=== PATIENT | male | born 1960 | race Caucasian/White ===

== ENCOUNTER 2016-06-02 03:21 | Inpatient (IN) | payer OTHER ==
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
--- NOTE | ~2016-06-02 | PN ---
Unit #: [id number] #: [id number] Patient: SERGEY REDMAN [id number] [facility] [address] [place] [address] [id number] MR#: [id number] NAME: SERGEY REDMAN ROOM: P256 Age: 55 Sex: M Admission Date: 06/02/2016 : 1960 Attending Physician: Brigitte Rizo M.D. Admitting Physician: Brigitte Rizo M.D. Primary Care Physician: Primary Care Physician Felecia VARELA NOTES DATE 06/06/2016 DISCUSSION Mr. Redman is a 55-year-old, white male who was seen today and chart was reviewed and case was discussed with the staff. He has been anxious, withdrawn, depressed and rather seclusive to himself and has been exhibiting depressive symptoms. Meanwhile, he has been taking medications and tolerating them fairly well. MENTAL STATUS EXAM Middle-aged white male who was casually dressed with fair personal hygiene, appears to be in no acute distress or discomfort. He was awake and alert on interaction with intact orientation. His mood was anxious and depressed with congruent affect. His speech was slow and goal directed. He denies any suicidal or homicidal ideation. Also, denies any auditory or visual hallucinations. His insight and judgement remains slightly impaired. TREATMENT PLAN 1. We will continue him on his current medications and treatment protocol. We will monitor his response and make further adjustments as needed. 2. We will continue to follow up. Dictated by... Sabra Escoto/anibal TD: 06/08/2016 20:55 JOB #: [id number] Unit #: [id number] #: [id number] Patient: SERGEY REDMAN PROGRESS NOTES X Brigitte Rizo MD PROGRESS NOTE
--- NOTE | ~2016-06-02 | PN ---
Unit #: [id number] #: [id number] Patient: SERGEY REDMAN [id number] [facility] [address] [place] [address] [id number] MR#: [id number] NAME: SERGEY REDMAN ROOM: P256 Age: 55 Sex: M Admission Date: 06/02/2016 : 1960 Attending Physician: Brigitte Rizo M.D. Admitting Physician: Brigitte Rizo M.D. Primary Care Physician: Primary Care Physician Felecia VARELA NOTES DATE 06/07/2016 DISCUSSION Mr. Redman is a 55-year-old white male who was seen today and chart was reviewed and case was discussed with the staff. He has been anxious, withdrawn though has not shown any agitation or irritability and has been cooperative with treatment recommendations as he has been taking medication and tolerating them very well with no reported side effects. MENTAL STATUS EXAMINATION Middle-age white male who was casually dressed with fair personal hygiene appears to be in no acute distress or discomfort. He was awake and alert in interactions with intact orientation. His mood was anxious and depressed with congruent affect. He denies any suicidal or homicidal ideation. His insight and judgement remains slightly impaired. TREATMENT PLAN We will continue with his medication and treatment protocol. We will monitor his response to the medications and make further adjustments as needed. We will continue to follow up. Dictated by... Sabra Escoto/anibal TD: 06/09/2016 04:12 JOB #: [id number] MEGAN PROGRESS NOTES X Brigitte Rizo MD PROGRESS NOTE
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
--- NOTE | ~2016-06-02 | PN ---
Unit #: [id number] #: [id number] Patient: SERGEY REDMAN [id number] [facility] [address] [place] [address] [id number] I MR#: [id number] NAME: SERGEY REDMAN ROOM: P256 Age: 55 Sex: M Admission Date: 06/02/2016 : 1960 Attending Physician: Brigitte Rizo M.D. Admitting Physician: Brigitte Rizo M.D. Primary Care Physician: Primary Care Physician Felecia VARELA NOTES DATE June 04, 2016 DISCUSSION Mr. Redman is a 55-year-old white male, who was seen today and chart was reviewed and the case was discussed with the staff. He has been anxious, withdrawn, and rather seclusive to himself and has been calm and cooperative and has been taking the medications and tolerating them fairly well but has been complaining of poor sleep at night. MENTAL STATUS EXAMINATION Middle-aged white male, who was casually dressed with fair personal hygiene and appears to be in no acute distress or discomfort. He was awake and alert on interaction with intact orientation. His mood is anxious and depressed with a congruent affect. His speech is slow and goal-directed. He denies any suicidal or homicidal ideations, and also denies any auditory or visual hallucinations. His insight and judgment remain slightly impaired. TREATMENT PLAN 1. We will continue him on his current medications and treatment protocol, and will monitor his response to the medications, and make further adjustments as needed. 2. We will continue to followup. Dictated by... Sabra Escoto/edward TD: 06/05/2016 07:08 JOB #: [id number] Unit #: [id number] #: [id number] Patient: SERGEY REDMAN PROGRESS NOTES X Brigitte Rizo MD PROGRESS NOTE
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
--- NOTE | ~2016-06-02 | PN ---
Unit #: [id number] #: [id number] Patient: SERGEY REDMAN [id number] [facility] [address] [place] [address] [id number] MR#: [id number] NAME: SERGEY REDMAN ROOM: P256 Age: 55 Sex: M Admission Date: 06/02/2016 : 1960 Attending Physician: Brigitte Rizo M.D. Admitting Physician: Brigitte Rizo M.D. Primary Care Physician: Primary Care Physician Felecia VARELA NOTES DATE OF SERVICE 06/03/2016 DISCUSSION Mr. Redman is a 55-year-old white male who was seen today. Chart was reviewed and case was discussed with the staff. He has been anxious, withdrawn, and depressed and rather seclusive to himself. Meanwhile, he has been cooperative with the treatment recommendations and has been taking the medications and tolerating them fairly well with no reported side effects. MENTAL STATUS EXAMINATION Middle-aged white male who is casually dressed with fair personal hygiene, appears to be in no acute distress or discomfort. He was awake and alert on interaction with intact orientation. His mood is anxious and depressed with congruent affect. His speech is slow and goal-directed. He reports having suicidal ideation but denies any homicidal ideation. His insight and judgment remain slightly impaired. TREATMENT PLAN 1. We will continue him on his current medications and treatment protocol. We will monitor his response to the medications and make further adjustments as needed. 2. We will continue to follow up. Dictated by... Sabra Escoto/coleen TD: 06/04/2016 13:13 JOB #: [id number] Unit #: [id number] #: [id number] Patient: SERGEY REDMAN PROGRESS NOTES X Brigitte Rizo MD PROGRESS NOTE
--- NOTE | ~2016-06-02 | PN ---
Unit #: [id number] #: [id number] Patient: SERGEY REDMAN [id number] [facility] [address] [place] [address] [id number] MR#: [id number] NAME: SERGEY REDMAN ROOM: P256 Age: 55 Sex: M Admission Date: 06/02/2016 : 1960 Attending Physician: Brigitte Rizo M.D. Admitting Physician: Brigitte Rizo M.D. Primary Care Physician: Primary Care Physician Felecia VARELA NOTES DATE OF SERVICE: 06/05/2016 SUBJECTIVE Mr. Redman is a 55-year-old white male with mood disorder, who was seen today and chart was reviewed, and case was discussed with the staff who reports the patient has been isolative on seclusive to himself. On approach, the patient was lying in his bed and was seen to be anxious, withdrawn, depressed with blunted affect and minimal interaction, though he has not shown any agitation or aggression. Meanwhile, he has been taking the medications and tolerating them fairly well with no reported side effects. MENTAL STATUS EXAMINATION Middle-aged white male who was casually dressed with fair personal hygiene, appears to be in no acute distress or discomfort. He was awake and alert on interaction with intact orientation. His mood was anxious and depressed with a congruent affect. His speech was slow and restricted in content. He denies any suicidal or homicidal ideations, and also denies any auditory or visual hallucinations. His insight and judgment remain slightly impaired. TREATMENT PLAN 1. We will continue him on his current medications and monitor his response to make further adjustments as needed. 2. We will continue to follow up. Dictated by... Sabra Escoto/lin TD: 06/05/2016 17:01 JOB #: [id number] Unit #: [id number] #: [id number] Patient: SERGEY REDMAN AVERY NOTES X Brigitte Rizo MD PROGRESS NOTE
--- NOTE | ~2016-06-02 | DS ---
Unit #: [id number] #: [id number] Patient: SERGEY DELEON [id number] [facility] [address] [place] [address] [id number] I MR#: [id number] NAME: SERGEY DELEON ROOM: P256 Age: 55 Sex: M Admission Date: 06/02/2016 : 1960 Discharge Date: 06/09/2016 Attending Physician: Brigitte Rizo M.D. Primary Care Physician: Primary Care Physician No DISCHARGE SUMMARY JOB NOTE: ADDENDUM ADDENDUM Mr. Deleon was scheduled to be discharged yesterday on 06/08/2016, however, he reports not feeling good and reports still having suicidal thoughts, having no place to go to and social economist were trying to get him into long-term chemical dependency rehab level of care, where he did get accepted and as such, it was decided that he will be discharged to [facility]. DISCHARGE CONDITION Stable. PROGNOSIS Fair. Dictated by... Sabra Escoto/lin TD: 06/10/2016 00:03 JOB #: [id number] DISCHARGE SUMMARY X Brigitte Rizo MD X DISCHARGE SUMMARY
[2016-06-02 09:40] LABS: BASOPHIL# 0.1 X10e3 (0-0.3); EOSINOPHIL# 0.3 X10e3 (0-0.7); EOSINOPHIL% 5.2 % (0.0-7.0); HEMATOCRIT 42.2 % (38.0-50.0); HEMOGLOBIN 14.2 gm/dL (13.0-16.0); LYMPHOCYTE% 32.9 % (17.0-45.0); MEAN CELL VOLUME 86.5 FL (83-96); MEAN CORPUSCULAR HEMOGLOBIN 29.1 PG (28-34); MEAN CORPUSCULAR HGB CONC 33.6 g/dL (30-36); MEAN PLATELET VOLUME 8.8 FL (6.5-11.5); MONOCYTE# 0.6 X10e3 (0-1.0); MONOCYTE% 9.3 % (3.0-12.0); NEUTROPHIL# 3.2 X10e3 (1.5-7.1); NEUTROPHIL% 51.6 % (40-75); PLATELET COUNT 187 X10e3 (140-420); RED BLOOD COUNT 4.88 X10e (3.90-5.60); WHITE BLOOD COUNT 6.2 X10e3 (4.0-10.5)
[2016-06-02 09:49] LABS: DIFF IND NO
[2016-06-02 10:07] LABS: ALBUMIN SERUM 3.9 g/dL (3.5-5.0); ALKALINE PHOSPHATASE 77 U/L (32-92); ALT (SGPT) 72 U/L (10-40); AST (SGOT) 52 U/L (10-42); BILIRUBIN,TOTAL 0.5 mg/dL (0.2-2.0); BLOOD UREA NITROGEN 18 mg/dL (9-23); CALCIUM SERUM 9.1 mg/dL (8.4-10.2); CARBON DIOXIDE 29 mmol/L (22-31); CHLORIDE 105 mmol/L (100-111); GLOM FILT RATE Estimated ABOVE60 mL/min (>60); GLUCOSE FASTING 79 mg/dL (70-110); POTASSIUM 4.1 mmol/L (3.5-5.1); PROTEIN TOTAL SERUM 6.2 g/dL (6.0-8.3); SODIUM 141 mmol/L (135-145); THYROID STIMULATING HORMONE 2.08 uIU/ml (0.34-5.60)
[2016-06-02 10:14] LABS: FREE THYROXIN (T4) 1.05 ng/dL (0.58-1.64)
[2016-06-02 12:36] LABS: URINE APPEARANCE CLEAR; URINE BILIRUBIN NEG (NEG); URINE BLOOD NEG (NEG); URINE COLOR YELLOW; URINE GLUCOSE NEG (NEG); URINE KETONE NEG (NEG); URINE LEUKOCYTE ESTERASE NEG (NEG); URINE NITRATE NEG (NEG); URINE PROTEIN NEG (NEG); URINE UROBILINOGEN 0.2 MG/DL (NEG)
[2016-06-02 13:15] LABS: AMPHETAMINE NEG (NEG); BARBITURATES NEG (NEG); BENZODIAZEPINES NEG (NEG); COCAINE NEG (NEG); MARIJUANA POS (NEG); OPIATES NEG (NEG); TRICYCLIC ANTIDEPRESSANTS NEG (NEG); U METHADONE NEG (NEG)
== END 2016-06-09 09:45 | disposition home or self-care (01) | DRG 885 ==
LOC: P2L 03:21 → POF 06-04 16:12 → P2L 06-04 16:13
PROVIDERS: Psychiatry & Neurology Psychiatry
PROC: HZ2ZZZZ Detoxification Services for Substance Abuse Treatment (ICD-10-PCS; principal; 2016-06-02)
DX: F33.1 Major depressive disorder, recurrent, moderate (principal); F11.20 Opioid dependence, uncomplicated; F10.20 Alcohol dependence, uncomplicated; F12.10 Cannabis abuse, uncomplicated; Z87.820 Personal history of traumatic brain injury; Z88.5 Allergy status to narcotic agent; Z88.2 Allergy status to sulfonamides; G40.909 Epilepsy, unspecified, not intractable, without status epilepticus
CPT/HCPCS: 80053; 80307; 81003; 84439; 84443; 85025